=== PATIENT | male | born 1935 | race Two or more races ===

== ENCOUNTER 2017-07-08 00:02 | Inpatient (IN) | payer OTHER ==
[~2017-07-08] VITALS: Ht 167.6 cm; Wt 70.8 kg
[~2017-07-08 00:02] MED LIST: AVALIDE 300-12.1 TAB; AVALIDE 300-12.1 TAB PO; CARDURA1 MG; CATAPRES0.3 M1; CATAPRES0.3 M1 PO; DOXAZOSIN 4 MG PO; GLIMEPIRIDE2 MG; GLIMEPIRIDE2 MG PO; LOTREL 10/40 MG1 CAP; LOTREL 10/40 MG1 CAP PO; METFORMIN HCL500 MG; METFORMIN HCL500 MG PO; NORVASC2.5 M1; NORVASC2.5 M1 PO
[2017-07-11] MEDS ORDERED: CARDURA1 MG PO (07:46)
[2017-07-11] MEDS ORDERED: AVALIDE 300-121 EACH PO (07:46)
[2017-07-11] MEDS ORDERED: CATAPRES0.3 M1 PO (07:46)
== END 2017-07-11 10:15 | disposition home or self-care (01) | DRG 378 ==
LOC: ER 00:02 → MEDI 09:20 → SEC-K 09:20 → MEDI 11:54
PROC: BW21Y0Z Computerized Tomography (CT Scan) of Abdomen and Pelvis using Other Contrast, Unenhanced and Enhanced (ICD-10-PCS; 2017-07-08)
PROC: 0DBN8ZX Excision of Sigmoid Colon, Via Natural or Artificial Opening Endoscopic, Diagnostic (ICD-10-PCS; principal; 2017-07-09)
PROC: 30233N1 Transfusion of Nonautologous Red Blood Cells into Peripheral Vein, Percutaneous Approach (ICD-10-PCS; 2017-07-09)
DX: K92.2 Gastrointestinal hemorrhage, unspecified (principal); D62 Acute posthemorrhagic anemia; E11.9 Type 2 diabetes mellitus without complications; I10 Essential (primary) hypertension; E87.6 Hypokalemia; K63.5 Polyp of colon

== ENCOUNTER 2017-07-22 07:40 | Outpatient (CLI) | payer OTHER ==
[~2017-07-22 07:40] MED LIST changes: +AVALIDE 300-121 EACH PO; +CARDURA1 MG PO
== END 2017-07-22 07:50 | disposition home or self-care (01) ==
LOC: LAB 07:40
DX: E11.9 Type 2 diabetes mellitus without complications (principal); D64.89 Other specified anemias; I10 Essential (primary) hypertension

== ENCOUNTER → 2017-08-12 07:11 | Outpatient (CLI) | payer OTHER | END | disposition home or self-care (01) | LOC: LAB 07:11 | DX: E03.8 Other specified hypothyroidism (principal); E11.51 Type 2 diabetes mellitus with diabetic peripheral angiopathy without gangrene; E11.65 Type 2 diabetes mellitus with hyperglycemia; E11.9 Type 2 diabetes mellitus without complications; E55.9 Vitamin D deficiency, unspecified; E66.8 Other obesity; I10 Essential (primary) hypertension; K21.9 Gastro-esophageal reflux disease without esophagitis; M54.5 Low back pain; M54.14 Radiculopathy, thoracic region; F41.8 Other specified anxiety disorders; G62.89 Other specified polyneuropathies; M15.8 Other polyosteoarthritis; M89.8X8 Other specified disorders of bone, other site ==

== ENCOUNTER 2017-08-28 06:58 | Outpatient (CLI) | payer OTHER ==
[2017-08-30] MEDS ORDERED: CATAPRES0.3 M1 PO (13:26)
[2017-08-30] MEDS ORDERED: COREG CR20 MG PO (13:27)
[2017-08-30] MEDS ORDERED: AMARYL PO (13:28)
== END 2017-08-28 07:09 | disposition home or self-care (01) ==
LOC: LAB 06:58
DX: K64.2 Third degree hemorrhoids (principal); K92.2 Gastrointestinal hemorrhage, unspecified; E03.9 Hypothyroidism, unspecified; E11.51 Type 2 diabetes mellitus with diabetic peripheral angiopathy without gangrene; E11.65 Type 2 diabetes mellitus with hyperglycemia; E55.9 Vitamin D deficiency, unspecified; E66.8 Other obesity; F41.9 Anxiety disorder, unspecified; I10 Essential (primary) hypertension; G62.9 Polyneuropathy, unspecified; K21.9 Gastro-esophageal reflux disease without esophagitis; M15.9 Polyosteoarthritis, unspecified; M54.5 Low back pain; M54.14 Radiculopathy, thoracic region; M89.9 Disorder of bone, unspecified

== ENCOUNTER 2017-09-03 05:42 | Day surgery (SDC) | payer OTHER ==
[~2017-09-03 05:42] MED LIST changes: +AMARYL PO; +COREG CR20 MG PO
== END 2017-09-03 14:35 | disposition home or self-care (01) ==
LOC: CIR.AMB 05:42
DX: K64.8 Other hemorrhoids (principal)

== ENCOUNTER 2017-11-20 07:21 | Outpatient (CLI) | payer OTHER | END 2017-11-20 07:36 | disposition home or self-care (01) | LOC: LAB 07:21 | DX: E03.8 Other specified hypothyroidism (principal); E11.51 Type 2 diabetes mellitus with diabetic peripheral angiopathy without gangrene; E11.65 Type 2 diabetes mellitus with hyperglycemia; E11.9 Type 2 diabetes mellitus without complications; E55.9 Vitamin D deficiency, unspecified; E66.8 Other obesity; F41.8 Other specified anxiety disorders; I10 Essential (primary) hypertension; G62.89 Other specified polyneuropathies; K21.9 Gastro-esophageal reflux disease without esophagitis; M15.8 Other polyosteoarthritis; M54.5 Low back pain; M54.14 Radiculopathy, thoracic region; K64.2 Third degree hemorrhoids; K92.2 Gastrointestinal hemorrhage, unspecified; Z01.810 Encounter for preprocedural cardiovascular examination; M89.8X8 Other specified disorders of bone, other site ==

== ENCOUNTER 2017-12-18 07:07 | Outpatient (CLI) | payer OTHER | END 2017-12-18 07:11 | disposition home or self-care (01) | LOC: LAB 07:07 | DX: E03.8 Other specified hypothyroidism (principal); E11.51 Type 2 diabetes mellitus with diabetic peripheral angiopathy without gangrene; E11.65 Type 2 diabetes mellitus with hyperglycemia; E11.9 Type 2 diabetes mellitus without complications; E55.9 Vitamin D deficiency, unspecified; E66.8 Other obesity; F41.8 Other specified anxiety disorders; I10 Essential (primary) hypertension; G62.89 Other specified polyneuropathies; K21.9 Gastro-esophageal reflux disease without esophagitis; M15.8 Other polyosteoarthritis; M54.5 Low back pain; M54.14 Radiculopathy, thoracic region; M89.9 Disorder of bone, unspecified; K64.2 Third degree hemorrhoids; K92.2 Gastrointestinal hemorrhage, unspecified; Z01.812 Encounter for preprocedural laboratory examination ==

== ENCOUNTER 2017-12-27 12:50 | Outpatient (CLI) | payer OTHER | END 2017-12-27 12:56 | disposition home or self-care (01) | LOC: LAB 12:50 | DX: Z12.11 Encounter for screening for malignant neoplasm of colon (principal); E03.8 Other specified hypothyroidism; E11.51 Type 2 diabetes mellitus with diabetic peripheral angiopathy without gangrene; E11.65 Type 2 diabetes mellitus with hyperglycemia; E11.9 Type 2 diabetes mellitus without complications; E55.9 Vitamin D deficiency, unspecified; E66.8 Other obesity; F41.8 Other specified anxiety disorders; I10 Essential (primary) hypertension; G62.89 Other specified polyneuropathies; K21.9 Gastro-esophageal reflux disease without esophagitis; M54.5 Low back pain; M15.8 Other polyosteoarthritis; K64.2 Third degree hemorrhoids; Z01.810 Encounter for preprocedural cardiovascular examination; K92.89 Other specified diseases of the digestive system ==

== ENCOUNTER 2018-01-17 12:44 | Outpatient (CLI) | payer OTHER | END 2018-01-17 13:00 | disposition home or self-care (01) | LOC: RAD 12:44 | DX: M16.11 Unilateral primary osteoarthritis, right hip (principal); E03.8 Other specified hypothyroidism; E11.51 Type 2 diabetes mellitus with diabetic peripheral angiopathy without gangrene; E11.65 Type 2 diabetes mellitus with hyperglycemia; E55.9 Vitamin D deficiency, unspecified; E66.8 Other obesity; F41.8 Other specified anxiety disorders; I10 Essential (primary) hypertension; G62.89 Other specified polyneuropathies; K21.9 Gastro-esophageal reflux disease without esophagitis; M15.8 Other polyosteoarthritis; M54.5 Low back pain ==

== ENCOUNTER → 2018-03-31 07:12 | Outpatient (CLI) | payer OTHER | END | disposition home or self-care (01) | LOC: LAB 07:12 | DX: E03.8 Other specified hypothyroidism (principal); E11.51 Type 2 diabetes mellitus with diabetic peripheral angiopathy without gangrene; E11.65 Type 2 diabetes mellitus with hyperglycemia; E55.9 Vitamin D deficiency, unspecified; E66.8 Other obesity; F41.8 Other specified anxiety disorders; I10 Essential (primary) hypertension; G62.89 Other specified polyneuropathies; K21.9 Gastro-esophageal reflux disease without esophagitis; M15.8 Other polyosteoarthritis; M54.5 Low back pain; M54.14 Radiculopathy, thoracic region; K64.2 Third degree hemorrhoids; K92.2 Gastrointestinal hemorrhage, unspecified; Z01.810 Encounter for preprocedural cardiovascular examination; N18.2 Chronic kidney disease, stage 2 (mild); R80.8 Other proteinuria; M89.8X8 Other specified disorders of bone, other site ==

== ENCOUNTER 2018-04-29 07:47 | Outpatient (CLI) | payer OTHER | END 2018-04-29 08:59 | disposition home or self-care (01) | LOC: LAB 07:47 | DX: I11.9 Hypertensive heart disease without heart failure (principal) ==

== ENCOUNTER 2018-06-05 07:53 | Outpatient (CLI) | payer OTHER | END 2018-06-05 08:06 | disposition home or self-care (01) | LOC: LAB 07:53 | DX: N18.3 Chronic kidney disease, stage 3 (moderate) (principal); E11.21 Type 2 diabetes mellitus with diabetic nephropathy; D63.1 Anemia in chronic kidney disease; N30.00 Acute cystitis without hematuria; E03.8 Other specified hypothyroidism; E78.49 Other hyperlipidemia ==

== ENCOUNTER → 2018-06-06 09:01 | Outpatient (CLI) | payer OTHER | END | disposition home or self-care (01) | LOC: MAMO-SONO 07:45 → SONOGRAMA 09:01 | DX: R10.9 Unspecified abdominal pain (principal); N18.3 Chronic kidney disease, stage 3 (moderate); R31.9 Hematuria, unspecified ==

== ENCOUNTER 2018-06-07 09:22 | Outpatient (CLI) | payer OTHER | END 2018-06-07 09:35 | disposition home or self-care (01) | LOC: LAB 09:22 | DX: E04.8 Other specified nontoxic goiter (principal); E11.9 Type 2 diabetes mellitus without complications ==

== ENCOUNTER 2018-08-06 07:04 | Outpatient (CLI) | payer OTHER | END 2018-08-06 07:25 | disposition home or self-care (01) | LOC: LAB 07:04 | DX: M54.5 Low back pain (principal); E11.9 Type 2 diabetes mellitus without complications; N18.2 Chronic kidney disease, stage 2 (mild); Z01.810 Encounter for preprocedural cardiovascular examination; M54.14 Radiculopathy, thoracic region; E03.8 Other specified hypothyroidism; E11.51 Type 2 diabetes mellitus with diabetic peripheral angiopathy without gangrene; E11.65 Type 2 diabetes mellitus with hyperglycemia; G62.89 Other specified polyneuropathies; K21.9 Gastro-esophageal reflux disease without esophagitis; E11.21 Type 2 diabetes mellitus with diabetic nephropathy; E11.29 Type 2 diabetes mellitus with other diabetic kidney complication; E11.319 Type 2 diabetes mellitus with unspecified diabetic retinopathy without macular edema; R80.8 Other proteinuria; M15.8 Other polyosteoarthritis; M89.8X8 Other specified disorders of bone, other site ==

== ENCOUNTER 2018-08-14 13:26 | Outpatient (CLI) | payer OTHER | END 2018-08-14 13:44 | disposition home or self-care (01) | LOC: RAD 13:26 | DX: Z11.1 Encounter for screening for respiratory tuberculosis (principal) ==

== ENCOUNTER → 2018-09-22 07:57 | Outpatient (CLI) | payer OTHER | END | disposition home or self-care (01) | LOC: LAB 07:57 | DX: M54.5 Low back pain (principal); M89.8X8 Other specified disorders of bone, other site; E11.9 Type 2 diabetes mellitus without complications; E11.29 Type 2 diabetes mellitus with other diabetic kidney complication; E11.319 Type 2 diabetes mellitus with unspecified diabetic retinopathy without macular edema; N18.2 Chronic kidney disease, stage 2 (mild); R80.8 Other proteinuria; K92.2 Gastrointestinal hemorrhage, unspecified; M15.8 Other polyosteoarthritis; M54.14 Radiculopathy, thoracic region; E03.8 Other specified hypothyroidism; E11.51 Type 2 diabetes mellitus with diabetic peripheral angiopathy without gangrene; E11.65 Type 2 diabetes mellitus with hyperglycemia; G62.89 Other specified polyneuropathies; Z79.84 Long term (current) use of oral hypoglycemic drugs; Z68.25 Body mass index [BMI] 25.0-25.9, adult; I11.9 Hypertensive heart disease without heart failure; N18.3 Chronic kidney disease, stage 3 (moderate); E11.21 Type 2 diabetes mellitus with diabetic nephropathy; D63.1 Anemia in chronic kidney disease; N30.00 Acute cystitis without hematuria; E78.49 Other hyperlipidemia ==

== ENCOUNTER 2019-02-12 07:11 | Outpatient (CLI) | payer OTHER | END 2019-02-12 07:30 | disposition home or self-care (01) | LOC: LAB 07:11 | DX: N18.3 Chronic kidney disease, stage 3 (moderate) (principal); E11.21 Type 2 diabetes mellitus with diabetic nephropathy; D63.1 Anemia in chronic kidney disease; N30.00 Acute cystitis without hematuria; E78.49 Other hyperlipidemia; E03.8 Other specified hypothyroidism; E11.9 Type 2 diabetes mellitus without complications; E11.29 Type 2 diabetes mellitus with other diabetic kidney complication; E11.319 Type 2 diabetes mellitus with unspecified diabetic retinopathy without macular edema; N18.2 Chronic kidney disease, stage 2 (mild); R80.8 Other proteinuria; K92.2 Gastrointestinal hemorrhage, unspecified; M15.8 Other polyosteoarthritis; M54.14 Radiculopathy, thoracic region; M54.5 Low back pain; M89.8X8 Other specified disorders of bone, other site; E11.51 Type 2 diabetes mellitus with diabetic peripheral angiopathy without gangrene; E11.65 Type 2 diabetes mellitus with hyperglycemia; G62.89 Other specified polyneuropathies; I11.9 Hypertensive heart disease without heart failure; Z79.84 Long term (current) use of oral hypoglycemic drugs; E11.42 Type 2 diabetes mellitus with diabetic polyneuropathy; Z68.25 Body mass index [BMI] 25.0-25.9, adult ==

== ENCOUNTER 2019-02-16 07:41 | Outpatient (CLI) | payer OTHER | END 2019-02-16 07:48 | disposition home or self-care (01) | LOC: LAB 07:41 | DX: N18.3 Chronic kidney disease, stage 3 (moderate) (principal); E11.21 Type 2 diabetes mellitus with diabetic nephropathy; D63.1 Anemia in chronic kidney disease; N30.00 Acute cystitis without hematuria; E78.49 Other hyperlipidemia; E03.8 Other specified hypothyroidism ==

== ENCOUNTER 2019-03-18 07:17 | Outpatient (CLI) | payer OTHER | END 2019-03-18 17:00 | disposition home or self-care (01) | LOC: TOM 07:17 | DX: E27.8 Other specified disorders of adrenal gland (principal); N18.2 Chronic kidney disease, stage 2 (mild) ==

== ENCOUNTER 2019-05-25 07:06 | Outpatient (CLI) | payer OTHER | END 2019-05-25 07:12 | disposition home or self-care (01) | LOC: LAB 07:06 | DX: E11.29 Type 2 diabetes mellitus with other diabetic kidney complication (principal); E11.319 Type 2 diabetes mellitus with unspecified diabetic retinopathy without macular edema; N18.2 Chronic kidney disease, stage 2 (mild); K92.2 Gastrointestinal hemorrhage, unspecified; M15.8 Other polyosteoarthritis; M54.14 Radiculopathy, thoracic region; M54.5 Low back pain; M89.8X8 Other specified disorders of bone, other site; E03.8 Other specified hypothyroidism; E11.51 Type 2 diabetes mellitus with diabetic peripheral angiopathy without gangrene; E11.65 Type 2 diabetes mellitus with hyperglycemia; G62.89 Other specified polyneuropathies; I11.9 Hypertensive heart disease without heart failure; Z79.84 Long term (current) use of oral hypoglycemic drugs; E11.42 Type 2 diabetes mellitus with diabetic polyneuropathy; M79.7 Fibromyalgia; N18.1 Chronic kidney disease, stage 1; I13.10 Hypertensive heart and chronic kidney disease without heart failure, with stage 1 through stage 4 chronic kidney disease, or unspecified chronic kidney disease; Z68.25 Body mass index [BMI] 25.0-25.9, adult; N18.3 Chronic kidney disease, stage 3 (moderate); E11.21 Type 2 diabetes mellitus with diabetic nephropathy; D63.1 Anemia in chronic kidney disease; N30.00 Acute cystitis without hematuria; E78.49 Other hyperlipidemia ==

== ENCOUNTER 2019-08-11 07:18 | Outpatient (CLI) | payer OTHER | END 2019-08-11 15:00 | disposition home or self-care (01) | LOC: CERTIFICAD 07:18 → LAB 07:18 → CERTIFICAD 15:00 | DX: Z11.1 Encounter for screening for respiratory tuberculosis (principal) ==

== ENCOUNTER 2019-08-21 10:26 | Outpatient (CLI) | payer OTHER | END 2019-08-21 15:00 | disposition home or self-care (01) | LOC: CERTIFICAD 10:26 → RAD 10:26 → CERTIFICAD 15:00 | DX: Z11.1 Encounter for screening for respiratory tuberculosis (principal) ==

== ENCOUNTER 2019-09-03 07:43 | Outpatient (CLI) | payer OTHER | END 2019-09-03 07:50 | disposition home or self-care (01) | LOC: LAB 07:43 | DX: E11.9 Type 2 diabetes mellitus without complications (principal); E11.29 Type 2 diabetes mellitus with other diabetic kidney complication; E11.319 Type 2 diabetes mellitus with unspecified diabetic retinopathy without macular edema; N18.2 Chronic kidney disease, stage 2 (mild); N11.8 Other chronic tubulo-interstitial nephritis; E11.21 Type 2 diabetes mellitus with diabetic nephropathy; D63.1 Anemia in chronic kidney disease; N30.00 Acute cystitis without hematuria; E78.49 Other hyperlipidemia; E03.8 Other specified hypothyroidism; K92.2 Gastrointestinal hemorrhage, unspecified; M15.8 Other polyosteoarthritis; M54.14 Radiculopathy, thoracic region; M54.5 Low back pain; M89.8X0 Other specified disorders of bone, multiple sites; E11.51 Type 2 diabetes mellitus with diabetic peripheral angiopathy without gangrene; E11.65 Type 2 diabetes mellitus with hyperglycemia; G62.89 Other specified polyneuropathies; I11.9 Hypertensive heart disease without heart failure; Z79.84 Long term (current) use of oral hypoglycemic drugs; E11.42 Type 2 diabetes mellitus with diabetic polyneuropathy; M79.7 Fibromyalgia; N18.1 Chronic kidney disease, stage 1; I13.10 Hypertensive heart and chronic kidney disease without heart failure, with stage 1 through stage 4 chronic kidney disease, or unspecified chronic kidney disease; Z68.25 Body mass index [BMI] 25.0-25.9, adult ==

== ENCOUNTER 2019-11-10 06:57 | Outpatient (CLI) | payer OTHER | END 2019-11-10 08:18 | disposition home or self-care (01) | LOC: LAB 06:57 | PROVIDERS: ATTEND Internal Medicine | DX: E11.29 Type 2 diabetes mellitus with other diabetic kidney complication (principal); E11.319 Type 2 diabetes mellitus with unspecified diabetic retinopathy without macular edema; N18.2 Chronic kidney disease, stage 2 (mild); R92.2 Inconclusive mammogram; M15.8 Other polyosteoarthritis; M54.14 Radiculopathy, thoracic region; M54.5 Low back pain; M89.8X8 Other specified disorders of bone, other site; E03.8 Other specified hypothyroidism; E11.51 Type 2 diabetes mellitus with diabetic peripheral angiopathy without gangrene; E11.65 Type 2 diabetes mellitus with hyperglycemia; G62.89 Other specified polyneuropathies; I11.9 Hypertensive heart disease without heart failure; Z79.84 Long term (current) use of oral hypoglycemic drugs; E11.42 Type 2 diabetes mellitus with diabetic polyneuropathy; M79.7 Fibromyalgia; N18.1 Chronic kidney disease, stage 1; I13.10 Hypertensive heart and chronic kidney disease without heart failure, with stage 1 through stage 4 chronic kidney disease, or unspecified chronic kidney disease; Z68.25 Body mass index [BMI] 25.0-25.9, adult ==

== ENCOUNTER 2019-11-12 06:51 | Outpatient (CLI) | payer OTHER | END 2019-11-12 15:00 | disposition home or self-care (01) | LOC: LAB 06:51 | PROVIDERS: ATTEND Internal Medicine | DX: E11.29 Type 2 diabetes mellitus with other diabetic kidney complication (principal); E11.319 Type 2 diabetes mellitus with unspecified diabetic retinopathy without macular edema; N18.2 Chronic kidney disease, stage 2 (mild); K92.2 Gastrointestinal hemorrhage, unspecified; M15.8 Other polyosteoarthritis; M54.14 Radiculopathy, thoracic region; M54.5 Low back pain; M89.8X8 Other specified disorders of bone, other site; E03.8 Other specified hypothyroidism; E11.51 Type 2 diabetes mellitus with diabetic peripheral angiopathy without gangrene; E11.65 Type 2 diabetes mellitus with hyperglycemia; G62.89 Other specified polyneuropathies; I11.9 Hypertensive heart disease without heart failure; Z79.84 Long term (current) use of oral hypoglycemic drugs; E11.42 Type 2 diabetes mellitus with diabetic polyneuropathy; M79.7 Fibromyalgia; Z12.11 Encounter for screening for malignant neoplasm of colon; N18.1 Chronic kidney disease, stage 1; I13.10 Hypertensive heart and chronic kidney disease without heart failure, with stage 1 through stage 4 chronic kidney disease, or unspecified chronic kidney disease; Z68.25 Body mass index [BMI] 25.0-25.9, adult ==

== ENCOUNTER 2019-11-16 06:51 | Outpatient (CLI) | payer OTHER | END 2019-11-16 07:14 | disposition home or self-care (01) | LOC: LAB 06:51 | PROVIDERS: ATTEND Specialist/Technologist, Other Nephrology | DX: E11.21 Type 2 diabetes mellitus with diabetic nephropathy (principal); D63.1 Anemia in chronic kidney disease; N30.00 Acute cystitis without hematuria; E03.8 Other specified hypothyroidism ==

== ENCOUNTER 2020-02-19 06:53 | Outpatient (CLI) | payer OTHER | END 2020-02-19 06:58 | disposition home or self-care (01) | LOC: LAB 06:53 | PROVIDERS: ATTEND Internal Medicine | DX: E11.29 Type 2 diabetes mellitus with other diabetic kidney complication (principal); E11.319 Type 2 diabetes mellitus with unspecified diabetic retinopathy without macular edema; N18.2 Chronic kidney disease, stage 2 (mild); K92.2 Gastrointestinal hemorrhage, unspecified; M15.8 Other polyosteoarthritis; M54.14 Radiculopathy, thoracic region; M54.5 Low back pain; M89.8X8 Other specified disorders of bone, other site; E03.8 Other specified hypothyroidism; E11.51 Type 2 diabetes mellitus with diabetic peripheral angiopathy without gangrene; E11.65 Type 2 diabetes mellitus with hyperglycemia; G62.89 Other specified polyneuropathies; I11.9 Hypertensive heart disease without heart failure; Z79.84 Long term (current) use of oral hypoglycemic drugs; E11.42 Type 2 diabetes mellitus with diabetic polyneuropathy; M79.7 Fibromyalgia; N18.1 Chronic kidney disease, stage 1; I13.10 Hypertensive heart and chronic kidney disease without heart failure, with stage 1 through stage 4 chronic kidney disease, or unspecified chronic kidney disease; Z68.25 Body mass index [BMI] 25.0-25.9, adult ==

== ENCOUNTER 2020-02-25 08:00 | Outpatient (CLI) | payer OTHER | END 2020-02-25 15:40 | disposition home or self-care (01) | LOC: PPH VACUNA 08:00 | DX: Z23 Encounter for immunization (principal) | CPT/HCPCS: 90688; G0008 ==

== ENCOUNTER 2020-03-01 08:07 | Outpatient (CLI) | payer OTHER | END 2020-03-01 08:26 | disposition home or self-care (01) | LOC: LAB 08:07 | PROVIDERS: ATTEND Colon & Rectal Surgery | DX: K57.30 Diverticulosis of large intestine without perforation or abscess without bleeding (principal) ==

== ENCOUNTER 2020-05-18 07:29 | Outpatient (CLI) | payer OTHER | END 2020-05-18 07:33 | disposition home or self-care (01) | LOC: LAB 07:29 | PROVIDERS: ATTEND Internal Medicine | DX: E11.29 Type 2 diabetes mellitus with other diabetic kidney complication (principal); E11.319 Type 2 diabetes mellitus with unspecified diabetic retinopathy without macular edema; N18.2 Chronic kidney disease, stage 2 (mild); K92.2 Gastrointestinal hemorrhage, unspecified; M15.8 Other polyosteoarthritis; M54.14 Radiculopathy, thoracic region; M54.5 Low back pain; M89.8X8 Other specified disorders of bone, other site; E03.8 Other specified hypothyroidism; E11.51 Type 2 diabetes mellitus with diabetic peripheral angiopathy without gangrene; E11.65 Type 2 diabetes mellitus with hyperglycemia; G62.89 Other specified polyneuropathies; I11.9 Hypertensive heart disease without heart failure; Z79.84 Long term (current) use of oral hypoglycemic drugs; E11.42 Type 2 diabetes mellitus with diabetic polyneuropathy; M79.7 Fibromyalgia; N18.1 Chronic kidney disease, stage 1; I13.10 Hypertensive heart and chronic kidney disease without heart failure, with stage 1 through stage 4 chronic kidney disease, or unspecified chronic kidney disease; Z68.25 Body mass index [BMI] 25.0-25.9, adult ==

== ENCOUNTER 2020-05-26 11:50 | Outpatient (CLI) | payer OTHER | END 2020-05-26 15:00 | disposition home or self-care (01) | LOC: PPH VACUNA 11:50 | DX: Z23 Encounter for immunization (principal) ==

== ENCOUNTER 2020-06-16 02:35 | Outpatient (CLI) | payer OTHER | END 2020-06-16 15:00 | disposition home or self-care (01) | LOC: PPH VACUNA 02:35 | PROVIDERS: ATTEND Emergency Medicine Pediatric Emergency Medicine | DX: Z23 Encounter for immunization (principal) ==

== ENCOUNTER 2020-08-15 10:29 | Outpatient (CLI) | payer OTHER | END 2020-08-15 10:33 | disposition home or self-care (01) | LOC: RAD 10:29 | DX: I11.9 Hypertensive heart disease without heart failure (principal) ==

== ENCOUNTER 2020-08-19 08:00 | Outpatient (CLI) | payer OTHER | END 2020-08-19 08:06 | disposition home or self-care (01) | LOC: LAB 08:00 | PROVIDERS: ATTEND Internal Medicine | DX: E11.9 Type 2 diabetes mellitus without complications (principal); E11.29 Type 2 diabetes mellitus with other diabetic kidney complication; E11.319 Type 2 diabetes mellitus with unspecified diabetic retinopathy without macular edema; N18.2 Chronic kidney disease, stage 2 (mild); K92.2 Gastrointestinal hemorrhage, unspecified; M15.8 Other polyosteoarthritis; M54.14 Radiculopathy, thoracic region; M54.5 Low back pain; M89.8X8 Other specified disorders of bone, other site; E03.8 Other specified hypothyroidism; E11.51 Type 2 diabetes mellitus with diabetic peripheral angiopathy without gangrene; E11.65 Type 2 diabetes mellitus with hyperglycemia; G62.89 Other specified polyneuropathies; I11.9 Hypertensive heart disease without heart failure; Z79.84 Long term (current) use of oral hypoglycemic drugs; E11.42 Type 2 diabetes mellitus with diabetic polyneuropathy; M79.7 Fibromyalgia; N18.1 Chronic kidney disease, stage 1; I13.10 Hypertensive heart and chronic kidney disease without heart failure, with stage 1 through stage 4 chronic kidney disease, or unspecified chronic kidney disease; Z68.25 Body mass index [BMI] 25.0-25.9, adult; Z12.11 Encounter for screening for malignant neoplasm of colon ==

== ENCOUNTER 2020-08-22 07:33 | Outpatient (CLI) | payer OTHER | END 2020-08-22 07:43 | disposition home or self-care (01) | LOC: LAB 07:33 → PPH VACUNA 07:33 → LAB 07:43 | PROVIDERS: ATTEND Internal Medicine | DX: Z12.11 Encounter for screening for malignant neoplasm of colon (principal); E11.29 Type 2 diabetes mellitus with other diabetic kidney complication; E11.319 Type 2 diabetes mellitus with unspecified diabetic retinopathy without macular edema; N18.2 Chronic kidney disease, stage 2 (mild); R80.8 Other proteinuria; K92.2 Gastrointestinal hemorrhage, unspecified; M15.8 Other polyosteoarthritis; M54.14 Radiculopathy, thoracic region; M54.5 Low back pain; E03.8 Other specified hypothyroidism; E11.51 Type 2 diabetes mellitus with diabetic peripheral angiopathy without gangrene; E11.65 Type 2 diabetes mellitus with hyperglycemia; G62.89 Other specified polyneuropathies; I11.9 Hypertensive heart disease without heart failure; Z79.84 Long term (current) use of oral hypoglycemic drugs; E11.42 Type 2 diabetes mellitus with diabetic polyneuropathy; M79.7 Fibromyalgia; N18.1 Chronic kidney disease, stage 1; I13.10 Hypertensive heart and chronic kidney disease without heart failure, with stage 1 through stage 4 chronic kidney disease, or unspecified chronic kidney disease; Z68.25 Body mass index [BMI] 25.0-25.9, adult; M89.8X8 Other specified disorders of bone, other site ==

== ENCOUNTER 2020-11-22 07:40 | Outpatient (CLI) | payer OTHER | END 2020-11-22 07:46 | disposition home or self-care (01) | LOC: LAB 07:40 | PROVIDERS: ATTEND Internal Medicine | DX: E11.29 Type 2 diabetes mellitus with other diabetic kidney complication (principal); E11.319 Type 2 diabetes mellitus with unspecified diabetic retinopathy without macular edema; N18.2 Chronic kidney disease, stage 2 (mild); R80.9 Proteinuria, unspecified; K92.2 Gastrointestinal hemorrhage, unspecified; M15.9 Polyosteoarthritis, unspecified; M54.14 Radiculopathy, thoracic region; M54.5 Low back pain; M89.9 Disorder of bone, unspecified; E03.9 Hypothyroidism, unspecified; E11.51 Type 2 diabetes mellitus with diabetic peripheral angiopathy without gangrene; E11.65 Type 2 diabetes mellitus with hyperglycemia; G62.9 Polyneuropathy, unspecified; I11.9 Hypertensive heart disease without heart failure; Z79.84 Long term (current) use of oral hypoglycemic drugs; E11.42 Type 2 diabetes mellitus with diabetic polyneuropathy; M79.7 Fibromyalgia; N18.1 Chronic kidney disease, stage 1; I13.10 Hypertensive heart and chronic kidney disease without heart failure, with stage 1 through stage 4 chronic kidney disease, or unspecified chronic kidney disease; Z68.25 Body mass index [BMI] 25.0-25.9, adult ==

== ENCOUNTER 2020-12-26 14:03 | Emergency (ER) | payer OTHER ==
[~2020-12-26] VITALS: Ht 167.6 cm; Wt 76.2 kg
[2020-12-26] MEDS ORDERED: NORVASC5 MG PO (14:07)
[2020-12-26] MEDS ORDERED: CELEBREX100 MG PO (16:23)
[2020-12-26] MEDS ORDERED: SKELAXIN800 MG PO (16:23)
== END 2020-12-26 16:27 ==
LOC: ER 14:03
DX: M54.31 Sciatica, right side (principal)

== ENCOUNTER → 2021-01-05 | Outpatient (CLI) | payer OTHER ==
[~2021-01-05] MED LIST changes: +CELEBREX100 MG PO; +NORVASC5 MG PO; +SKELAXIN800 MG PO
== END | disposition home or self-care (01) ==
LOC: LAB 11:27
PROVIDERS: ATTEND Emergency Medicine Pediatric Emergency Medicine
DX: Z20.818 Contact with and (suspected) exposure to other bacterial communicable diseases (principal)

== ENCOUNTER → 2021-03-06 06:46 | Outpatient (CLI) | payer OTHER | END | disposition home or self-care (01) | LOC: LAB 06:46 | PROVIDERS: ATTEND Emergency Medicine Pediatric Emergency Medicine | DX: N41.0 Acute prostatitis (principal); E11.29 Type 2 diabetes mellitus with other diabetic kidney complication; E11.319 Type 2 diabetes mellitus with unspecified diabetic retinopathy without macular edema; N18.2 Chronic kidney disease, stage 2 (mild); K92.2 Gastrointestinal hemorrhage, unspecified; M15.8 Other polyosteoarthritis; M54.14 Radiculopathy, thoracic region; M54.5 Low back pain; M89.8X8 Other specified disorders of bone, other site; E03.8 Other specified hypothyroidism; E11.51 Type 2 diabetes mellitus with diabetic peripheral angiopathy without gangrene; E11.65 Type 2 diabetes mellitus with hyperglycemia; G62.89 Other specified polyneuropathies; I11.9 Hypertensive heart disease without heart failure; Z79.84 Long term (current) use of oral hypoglycemic drugs; E11.42 Type 2 diabetes mellitus with diabetic polyneuropathy; M79.7 Fibromyalgia; N18.1 Chronic kidney disease, stage 1; I13.10 Hypertensive heart and chronic kidney disease without heart failure, with stage 1 through stage 4 chronic kidney disease, or unspecified chronic kidney disease; Z68.25 Body mass index [BMI] 25.0-25.9, adult ==

== ENCOUNTER 2021-03-06 08:00 | Outpatient (CLI) | payer OTHER | END 2021-03-06 08:30 | disposition home or self-care (01) | LOC: PPH VACUNA 08:00 | PROVIDERS: ATTEND Emergency Medicine Pediatric Emergency Medicine | DX: Z23 Encounter for immunization (principal) ==

== ENCOUNTER 2021-03-08 08:00 | Outpatient (CLI) | payer OTHER | END 2021-03-08 08:30 | disposition home or self-care (01) | LOC: PPH VACUNA 08:00 | PROVIDERS: ATTEND Emergency Medicine Pediatric Emergency Medicine | DX: Z23 Encounter for immunization (principal) ==

== ENCOUNTER → 2021-03-24 09:13 | Outpatient (CLI) | payer OTHER | END | disposition home or self-care (01) | LOC: LAB 09:13 | PROVIDERS: ATTEND Specialist | DX: B01.9 Varicella without complication (principal) ==

== ENCOUNTER 2021-05-29 10:15 | Outpatient (CLI) | payer OTHER | END 2021-05-29 10:16 | disposition home or self-care (01) | LOC: LAB 10:15 | PROVIDERS: ATTEND Anesthesiology | DX: Z03.818 Encounter for observation for suspected exposure to other biological agents ruled out (principal); B96.0 Mycoplasma pneumoniae [M. pneumoniae] as the cause of diseases classified elsewhere ==

== ENCOUNTER 2021-06-07 07:17 | Outpatient (CLI) | payer OTHER | END 2021-06-07 07:22 | disposition home or self-care (01) | LOC: LAB 07:17 | PROVIDERS: ATTEND Anesthesiology Pain Medicine | DX: Z20.818 Contact with and (suspected) exposure to other bacterial communicable diseases (principal) ==

== ENCOUNTER 2021-06-19 06:57 | Outpatient (CLI) | payer OTHER | END 2021-06-19 07:02 | disposition home or self-care (01) | LOC: LAB 06:57 | PROVIDERS: ATTEND Internal Medicine | DX: E11.29 Type 2 diabetes mellitus with other diabetic kidney complication (principal); E11.9 Type 2 diabetes mellitus without complications; E11.319 Type 2 diabetes mellitus with unspecified diabetic retinopathy without macular edema; N18.2 Chronic kidney disease, stage 2 (mild); R80.8 Other proteinuria; K92.2 Gastrointestinal hemorrhage, unspecified; M15.9 Polyosteoarthritis, unspecified; M54.14 Radiculopathy, thoracic region; M54.59 Other low back pain; M89.8X0 Other specified disorders of bone, multiple sites; E03.8 Other specified hypothyroidism; E11.51 Type 2 diabetes mellitus with diabetic peripheral angiopathy without gangrene; E11.65 Type 2 diabetes mellitus with hyperglycemia; G62.89 Other specified polyneuropathies; I11.9 Hypertensive heart disease without heart failure; Z79.84 Long term (current) use of oral hypoglycemic drugs; E11.42 Type 2 diabetes mellitus with diabetic polyneuropathy; M79.7 Fibromyalgia; N18.1 Chronic kidney disease, stage 1; I13.10 Hypertensive heart and chronic kidney disease without heart failure, with stage 1 through stage 4 chronic kidney disease, or unspecified chronic kidney disease; Z68.25 Body mass index [BMI] 25.0-25.9, adult; N41.0 Acute prostatitis ==

== ENCOUNTER 2021-09-12 08:00 | Outpatient (CLI) | payer OTHER | END 2021-09-12 08:30 | disposition home or self-care (01) | LOC: PPH VACUNA 08:00 | PROVIDERS: ATTEND Emergency Medicine Pediatric Emergency Medicine | DX: Z23 Encounter for immunization (principal) ==

== ENCOUNTER 2021-09-18 07:34 | Outpatient (CLI) | payer OTHER | END 2021-09-18 07:48 | disposition home or self-care (01) | LOC: LAB 07:34 | PROVIDERS: ATTEND Internal Medicine | DX: E11.9 Type 2 diabetes mellitus without complications (principal); E11.29 Type 2 diabetes mellitus with other diabetic kidney complication; E11.319 Type 2 diabetes mellitus with unspecified diabetic retinopathy without macular edema; N18.2 Chronic kidney disease, stage 2 (mild); R80.9 Proteinuria, unspecified; K92.2 Gastrointestinal hemorrhage, unspecified; M15.9 Polyosteoarthritis, unspecified; M54.14 Radiculopathy, thoracic region; M54.50 Low back pain, unspecified; M89.9 Disorder of bone, unspecified; E03.9 Hypothyroidism, unspecified; E11.65 Type 2 diabetes mellitus with hyperglycemia; E11.51 Type 2 diabetes mellitus with diabetic peripheral angiopathy without gangrene; G62.9 Polyneuropathy, unspecified; I11.9 Hypertensive heart disease without heart failure; Z79.84 Long term (current) use of oral hypoglycemic drugs; E11.42 Type 2 diabetes mellitus with diabetic polyneuropathy ==

== ENCOUNTER 2021-12-18 07:09 | Outpatient (CLI) | payer OTHER | END 2021-12-18 07:23 | disposition home or self-care (01) | LOC: LAB 07:09 | PROVIDERS: ATTEND Internal Medicine | DX: E11.29 Type 2 diabetes mellitus with other diabetic kidney complication (principal); E11.319 Type 2 diabetes mellitus with unspecified diabetic retinopathy without macular edema; N18.2 Chronic kidney disease, stage 2 (mild); R80.9 Proteinuria, unspecified; K92.2 Gastrointestinal hemorrhage, unspecified; M15.9 Polyosteoarthritis, unspecified; M54.14 Radiculopathy, thoracic region; M54.50 Low back pain, unspecified; M89.9 Disorder of bone, unspecified; E03.9 Hypothyroidism, unspecified; E11.51 Type 2 diabetes mellitus with diabetic peripheral angiopathy without gangrene; E11.65 Type 2 diabetes mellitus with hyperglycemia; G62.9 Polyneuropathy, unspecified; I11.9 Hypertensive heart disease without heart failure; Z79.84 Long term (current) use of oral hypoglycemic drugs; E11.42 Type 2 diabetes mellitus with diabetic polyneuropathy; M79.7 Fibromyalgia; N18.1 Chronic kidney disease, stage 1; I13.10 Hypertensive heart and chronic kidney disease without heart failure, with stage 1 through stage 4 chronic kidney disease, or unspecified chronic kidney disease; Z20.828 Contact with and (suspected) exposure to other viral communicable diseases; Z68.25 Body mass index [BMI] 25.0-25.9, adult; N41.0 Acute prostatitis; Z12.11 Encounter for screening for malignant neoplasm of colon ==

== ENCOUNTER 2022-03-26 07:46 | Outpatient (CLI) | payer OTHER | END 2022-03-26 07:47 | disposition home or self-care (01) | LOC: LAB 07:46 | PROVIDERS: ATTEND Internal Medicine | DX: E11.9 Type 2 diabetes mellitus without complications (principal); E11.29 Type 2 diabetes mellitus with other diabetic kidney complication; E11.319 Type 2 diabetes mellitus with unspecified diabetic retinopathy without macular edema; N18.2 Chronic kidney disease, stage 2 (mild); R80.9 Proteinuria, unspecified; K92.2 Gastrointestinal hemorrhage, unspecified; M15.9 Polyosteoarthritis, unspecified; M54.14 Radiculopathy, thoracic region; M54.50 Low back pain, unspecified; M89.9 Disorder of bone, unspecified; E03.9 Hypothyroidism, unspecified; E11.51 Type 2 diabetes mellitus with diabetic peripheral angiopathy without gangrene; E11.65 Type 2 diabetes mellitus with hyperglycemia; G62.9 Polyneuropathy, unspecified; I11.9 Hypertensive heart disease without heart failure; Z79.84 Long term (current) use of oral hypoglycemic drugs; M79.7 Fibromyalgia; N18.1 Chronic kidney disease, stage 1; I83.10 Varicose veins of unspecified lower extremity with inflammation; Z20.828 Contact with and (suspected) exposure to other viral communicable diseases; N41.0 Acute prostatitis ==

== ENCOUNTER 2022-07-03 07:37 | Outpatient (CLI) | payer OTHER | END 2022-07-03 07:41 | disposition home or self-care (01) | LOC: LAB 07:37 | PROVIDERS: ATTEND Internal Medicine | DX: E11.29 Type 2 diabetes mellitus with other diabetic kidney complication (principal); E11.319 Type 2 diabetes mellitus with unspecified diabetic retinopathy without macular edema; N18.2 Chronic kidney disease, stage 2 (mild); R80.9 Proteinuria, unspecified; K92.2 Gastrointestinal hemorrhage, unspecified; M15.9 Polyosteoarthritis, unspecified; M54.14 Radiculopathy, thoracic region; M54.50 Low back pain, unspecified; M89.9 Disorder of bone, unspecified; E03.9 Hypothyroidism, unspecified; E11.51 Type 2 diabetes mellitus with diabetic peripheral angiopathy without gangrene; E11.65 Type 2 diabetes mellitus with hyperglycemia; I11.9 Hypertensive heart disease without heart failure; Z79.84 Long term (current) use of oral hypoglycemic drugs; E11.42 Type 2 diabetes mellitus with diabetic polyneuropathy; M79.7 Fibromyalgia; N18.1 Chronic kidney disease, stage 1; I13.10 Hypertensive heart and chronic kidney disease without heart failure, with stage 1 through stage 4 chronic kidney disease, or unspecified chronic kidney disease; Z20.828 Contact with and (suspected) exposure to other viral communicable diseases; Z68.25 Body mass index [BMI] 25.0-25.9, adult; N41.0 Acute prostatitis ==

== ENCOUNTER → 2022-10-05 07:07 | Outpatient (CLI) | payer OTHER | END | disposition home or self-care (01) | LOC: LAB 07:07 | PROVIDERS: ATTEND Internal Medicine | DX: E11.29 Type 2 diabetes mellitus with other diabetic kidney complication (principal); E11.319 Type 2 diabetes mellitus with unspecified diabetic retinopathy without macular edema; N18.2 Chronic kidney disease, stage 2 (mild); K92.2 Gastrointestinal hemorrhage, unspecified; M15.9 Polyosteoarthritis, unspecified; M54.14 Radiculopathy, thoracic region; M54.59 Other low back pain; E03.9 Hypothyroidism, unspecified; E11.51 Type 2 diabetes mellitus with diabetic peripheral angiopathy without gangrene; E11.65 Type 2 diabetes mellitus with hyperglycemia; G62.9 Polyneuropathy, unspecified; Z79.84 Long term (current) use of oral hypoglycemic drugs; E11.42 Type 2 diabetes mellitus with diabetic polyneuropathy; N18.1 Chronic kidney disease, stage 1; I13.10 Hypertensive heart and chronic kidney disease without heart failure, with stage 1 through stage 4 chronic kidney disease, or unspecified chronic kidney disease; Z68.25 Body mass index [BMI] 25.0-25.9, adult; N41.0 Acute prostatitis; R80.9 Proteinuria, unspecified ==

== ENCOUNTER 2022-12-20 08:33 | Emergency (ER) | payer OTHER ==
[~2022-12-20] VITALS: Ht 167.6 cm; Wt 72.6 kg
[2022-12-20] MEDS ORDERED: CARVEDILOL ER40 MG PO (08:50)
[2022-12-20] MEDS ORDERED: AMILORIDE HCL5 MG (08:50)
[2022-12-20] MEDS ORDERED: AMLODIPINE-ATO1 EAC9 PO (08:51)
[2022-12-20] MEDS ORDERED: GLIMEPIRIDE4 MG (08:52)
== END 2022-12-20 11:08 | disposition home or self-care (01) ==
LOC: ER 08:33
DX: S01.521A Laceration with foreign body of lip, initial encounter (principal); W18.39XA Other fall on same level, initial encounter; Y93.89 Activity, other specified; Y92.89 Other specified places as the place of occurrence of the external cause; E11.9 Type 2 diabetes mellitus without complications; Z79.84 Long term (current) use of oral hypoglycemic drugs; E78.00 Pure hypercholesterolemia, unspecified; I10 Essential (primary) hypertension; E03.9 Hypothyroidism, unspecified

== ENCOUNTER → 2023-01-15 08:09 | Outpatient (CLI) | payer OTHER ==
[~2023-01-15 08:09] MED LIST changes: +AMILORIDE HCL5 MG; +AMLODIPINE-ATO1 EAC9 PO; +CARVEDILOL ER40 MG PO; +GLIMEPIRIDE4 MG
== END | disposition home or self-care (01) ==
LOC: LAB 08:09
PROVIDERS: ATTEND Internal Medicine
DX: E11.29 Type 2 diabetes mellitus with other diabetic kidney complication (principal); E11.319 Type 2 diabetes mellitus with unspecified diabetic retinopathy without macular edema; N18.2 Chronic kidney disease, stage 2 (mild); R80.9 Proteinuria, unspecified; K92.2 Gastrointestinal hemorrhage, unspecified; M15.9 Polyosteoarthritis, unspecified; M54.14 Radiculopathy, thoracic region; M54.59 Other low back pain; E03.9 Hypothyroidism, unspecified; E11.51 Type 2 diabetes mellitus with diabetic peripheral angiopathy without gangrene; E11.65 Type 2 diabetes mellitus with hyperglycemia; G62.9 Polyneuropathy, unspecified; Z79.84 Long term (current) use of oral hypoglycemic drugs; E11.42 Type 2 diabetes mellitus with diabetic polyneuropathy; N18.1 Chronic kidney disease, stage 1; I13.10 Hypertensive heart and chronic kidney disease without heart failure, with stage 1 through stage 4 chronic kidney disease, or unspecified chronic kidney disease; Z68.25 Body mass index [BMI] 25.0-25.9, adult; N41.0 Acute prostatitis; Z12.11 Encounter for screening for malignant neoplasm of colon

== ENCOUNTER 2023-05-01 09:14 | Outpatient (CLI) | payer OTHER ==
[2023-05-01 10:11] LABS: HEMATOCRIT 40.2 % (39.0-48.0); HEMOGLOBIN 13.9 g/dL (13-16.00); MEAN CELL VOLUME 87.9 fL (80.0-100.00); MEAN CORPUSCULAR HEMOGLOBIN 30.5 pg (27.00-32.0); MEAN CORPUSCULAR HGB CONC 34.7 g/dl (32.0-36.0); PLATELET COUNT 244 K/uL (150-450); RED BLOOD COUNT 4.57 M/uL (4.00-6.00); RED CELL DISTRIBUTION WIDTH 13.4 % (11.5-14.5)
[2023-05-01 10:20] LABS: URINE APPEARANCE Clear; URINE BILIRRUBIN Negative (NEGATIVE); URINE BLOOD Negative; URINE COLOR Yellow; URINE GLUCOSE Negative (NEGATIVE); URINE LEUKOCYTE Negative; URINE NITRATE Negative; URINE UROBILINOGEN 0.2 E.U./dl
[2023-05-01 10:24] LABS: URINE EPITHELIAL CELLS 1.6 uL (0.0-38.8)
[2023-05-01 10:39] LABS: URINE BACTERIA 3.7 uL (0.0-1933); URINE PROTEIN 100 (NEGATIVE); URINE RBC 1.2 uL (0.0-20.8); URINE WBC 0.3 uL (0.0-23.2)
[2023-05-01 11:04] LABS: BILIRUBIN TOTAL 0.62 mg/dL (0.3-1.2); CALCIUM 10.6 mg/dL (8.5-10.1); CHOL HDL RATIO 2.3 (0-5.0); CREATININE SERUM 1.39 mg/dL (0.70-1.30); FREE TRIODOTIRONINE 2.33 pg/ml (2.18-3.98); GFR 48.45; GLOBULINA 3.9 G/DL (2.4-3.5); PHOSPHOROUS 2.9 mg/dL (2.5-4.9); POTASSIUM 3.2 mEq/L (3.5-5.1); T4 FREE 0.93 NG/ML (0.76-1.46); T4 TOTAL 9.17 UG/DL (4.5-12.1); TOTAL PROTEIN 7.9 gm/dL (6.4-8.2); TSH 2.15 uIU/mL (0.358-3.74)
== END 2023-05-01 09:15 | disposition home or self-care (01) ==
LOC: LAB 09:14
PROVIDERS: ATTEND Internal Medicine
DX: E11.29 Type 2 diabetes mellitus with other diabetic kidney complication (principal); E11.319 Type 2 diabetes mellitus with unspecified diabetic retinopathy without macular edema; N18.2 Chronic kidney disease, stage 2 (mild); R80.9 Proteinuria, unspecified; K92.2 Gastrointestinal hemorrhage, unspecified; M15.9 Polyosteoarthritis, unspecified; M54.14 Radiculopathy, thoracic region; E03.9 Hypothyroidism, unspecified; E11.51 Type 2 diabetes mellitus with diabetic peripheral angiopathy without gangrene; E11.65 Type 2 diabetes mellitus with hyperglycemia; G62.9 Polyneuropathy, unspecified; Z79.84 Long term (current) use of oral hypoglycemic drugs; E11.42 Type 2 diabetes mellitus with diabetic polyneuropathy; N18.1 Chronic kidney disease, stage 1; I13.10 Hypertensive heart and chronic kidney disease without heart failure, with stage 1 through stage 4 chronic kidney disease, or unspecified chronic kidney disease; Z68.25 Body mass index [BMI] 25.0-25.9, adult; N41.0 Acute prostatitis; Z12.11 Encounter for screening for malignant neoplasm of colon

== ENCOUNTER → 2023-07-22 07:03 | Outpatient (CLI) | payer OTHER ==
[2023-07-22 08:03] LABS: HEMOGLOBIN 13.4 g/dL (13-16.00); MEAN CELL VOLUME 87.5 fL (80.0-100.00); MEAN CORPUSCULAR HEMOGLOBIN 30.2 pg (27.00-32.0); MEAN CORPUSCULAR HGB CONC 34.5 g/dl (32.0-36.0); PLATELET COUNT 222 K/uL (150-450); RED BLOOD COUNT 4.45 M/uL (4.00-6.00)
[2023-07-22 08:05] LABS: URINE APPEARANCE Clear; URINE BILIRRUBIN Negative (NEGATIVE); URINE BLOOD Negative; URINE COLOR Yellow; URINE GLUCOSE Negative (NEGATIVE); URINE LEUKOCYTE Negative; URINE NITRATE Negative; URINE UROBILINOGEN 0.2 E.U./dl
[2023-07-22 08:07] LABS: URINE BACTERIA 23.9 uL (0.0-1933); URINE EPITHELIAL CELLS 5.4 uL (0.0-38.8); URINE RBC 3.7 uL (0.0-20.8); URINE WBC 5.4 uL (0.0-23.2)
[2023-07-22 08:32] LABS: URINE PROTEIN 300 (NEGATIVE)
[2023-07-22 08:50] LABS: ALBUMIN 3.8 gm/dL (3.4-5.0); BILIRUBIN TOTAL 0.72 mg/dL (0.3-1.2); CALCIUM 10.3 mg/dL (8.5-10.1); CREATININE SERUM 1.61 mg/dL (0.70-1.30); GFR 40.89; GLOBULINA 3.9 G/DL (2.4-3.5); PHOSPHOROUS 3.3 mg/dL (2.5-4.9); POTASSIUM 3.7 mEq/L (3.5-5.1); TOTAL PROTEIN 7.7 gm/dL (6.4-8.2); URIC ACID 5.8 mg/dL (3.5-8.5)
[2023-07-22 08:54] LABS: CHOL HDL RATIO 4.3 (0-5.0)
== END | disposition home or self-care (01) ==
LOC: LAB 07:03
PROVIDERS: ATTEND Internal Medicine
DX: E11.9 Type 2 diabetes mellitus without complications (principal); E11.29 Type 2 diabetes mellitus with other diabetic kidney complication; E11.319 Type 2 diabetes mellitus with unspecified diabetic retinopathy without macular edema; N18.2 Chronic kidney disease, stage 2 (mild); R80.9 Proteinuria, unspecified; K92.2 Gastrointestinal hemorrhage, unspecified; M15.9 Polyosteoarthritis, unspecified; M54.14 Radiculopathy, thoracic region; E03.9 Hypothyroidism, unspecified; E11.51 Type 2 diabetes mellitus with diabetic peripheral angiopathy without gangrene; E11.65 Type 2 diabetes mellitus with hyperglycemia; G62.9 Polyneuropathy, unspecified; Z79.84 Long term (current) use of oral hypoglycemic drugs; E11.42 Type 2 diabetes mellitus with diabetic polyneuropathy; N18.1 Chronic kidney disease, stage 1; I13.10 Hypertensive heart and chronic kidney disease without heart failure, with stage 1 through stage 4 chronic kidney disease, or unspecified chronic kidney disease; Z68.25 Body mass index [BMI] 25.0-25.9, adult; N41.0 Acute prostatitis; Z12.11 Encounter for screening for malignant neoplasm of colon; N18.30 Chronic kidney disease, stage 3 unspecified; E11.21 Type 2 diabetes mellitus with diabetic nephropathy; D63.1 Anemia in chronic kidney disease; D30.00 Benign neoplasm of unspecified kidney; E78.5 Hyperlipidemia, unspecified

== ENCOUNTER → 2023-07-24 10:23 | Outpatient (CLI) | payer OTHER ==
[2023-07-24 12:04] LABS: URINE PROT QUANT 24HR 130.7 MG/DL
[2023-07-24 12:09] LABS: URINE PROT QUANT 24 HR 3104.13 MG/24HR (42-225)
[2023-07-24 12:11] LABS: CREATININE SERUM 1.51 mg/dL (0.8-1.3)
== END | disposition home or self-care (01) ==
LOC: LAB 10:23
PROVIDERS: ATTEND Specialist/Technologist, Other Nephrology
DX: N18.30 Chronic kidney disease, stage 3 unspecified (principal); E11.21 Type 2 diabetes mellitus with diabetic nephropathy; D63.1 Anemia in chronic kidney disease; N30.00 Acute cystitis without hematuria; E78.5 Hyperlipidemia, unspecified; E03.9 Hypothyroidism, unspecified

== ENCOUNTER 2023-07-30 07:26 | Outpatient (CLI) | payer OTHER | END 2023-07-30 07:37 | disposition home or self-care (01) | LOC: TOM 07:26 | PROVIDERS: ATTEND Specialist/Technologist, Other Nephrology | DX: N18.30 Chronic kidney disease, stage 3 unspecified (principal); I12.9 Hypertensive chronic kidney disease with stage 1 through stage 4 chronic kidney disease, or unspecified chronic kidney disease; D35.02 Benign neoplasm of left adrenal gland ==

== ENCOUNTER → 2023-08-08 10:41 | Outpatient (CLI) | payer OTHER ==
[2023-08-08 14:03] LABS: ob POSITIVE (NEGATIVE)
== END | disposition home or self-care (01) ==
LOC: LAB 10:41
PROVIDERS: ATTEND Internal Medicine
DX: Z12.11 Encounter for screening for malignant neoplasm of colon (principal)

== ENCOUNTER 2023-09-13 07:18 | Outpatient (CLI) | payer OTHER ==
[2023-09-13 08:32] LABS: HEMATOCRIT 38.1 % (39.0-48.0); HEMOGLOBIN 13.3 g/dL (13-16.00); MEAN CELL VOLUME 87.8 fL (80.0-100.00); MEAN CORPUSCULAR HEMOGLOBIN 30.8 pg (27.00-32.0); PLATELET COUNT 224 K/uL (150-450); RED BLOOD COUNT 4.34 M/uL (4.00-6.00)
== END 2023-09-13 07:19 | disposition home or self-care (01) ==
LOC: LAB 07:18
PROVIDERS: ATTEND Colon & Rectal Surgery
DX: K64.2 Third degree hemorrhoids (principal); K92.2 Gastrointestinal hemorrhage, unspecified

== ENCOUNTER 2024-10-26 11:41 | Outpatient (CLI) | payer OTHER | END 2024-10-26 11:43 | disposition home or self-care (01) | LOC: MRI 11:41 | PROVIDERS: ATTEND Internal Medicine | DX: E11.9 Type 2 diabetes mellitus without complications (principal); E11.29 Type 2 diabetes mellitus with other diabetic kidney complication; E11.319 Type 2 diabetes mellitus with unspecified diabetic retinopathy without macular edema; M15.9 Polyosteoarthritis, unspecified; M54.14 Radiculopathy, thoracic region; E03.9 Hypothyroidism, unspecified; E11.51 Type 2 diabetes mellitus with diabetic peripheral angiopathy without gangrene; E11.65 Type 2 diabetes mellitus with hyperglycemia; Z79.84 Long term (current) use of oral hypoglycemic drugs; E11.42 Type 2 diabetes mellitus with diabetic polyneuropathy | CPT/HCPCS: 70551 ==

== ENCOUNTER → 2024-12-08 07:46 | Outpatient (CLI) | payer OTHER | END | disposition home or self-care (01) | LOC: NUCLEAR 07:46 | PROVIDERS: ATTEND Psychiatry & Neurology Clinical Neurophysiology | DX: G31.83 Neurocognitive disorder with Lewy bodies (principal) | CPT/HCPCS: 78803; A9557 ==

== ENCOUNTER 2025-03-22 09:39 | Outpatient (CLI) | payer OTHER | END 2025-03-22 09:46 | disposition home or self-care (01) | LOC: RAD 09:39 | PROVIDERS: ATTEND Internal Medicine | DX: E11.9 Type 2 diabetes mellitus without complications (principal); E11.29 Type 2 diabetes mellitus with other diabetic kidney complication; E11.319 Type 2 diabetes mellitus with unspecified diabetic retinopathy without macular edema; R80.9 Proteinuria, unspecified; M15.9 Polyosteoarthritis, unspecified; M54.14 Radiculopathy, thoracic region; E03.9 Hypothyroidism, unspecified; E11.51 Type 2 diabetes mellitus with diabetic peripheral angiopathy without gangrene; E11.65 Type 2 diabetes mellitus with hyperglycemia; G62.9 Polyneuropathy, unspecified; Z79.84 Long term (current) use of oral hypoglycemic drugs; E11.42 Type 2 diabetes mellitus with diabetic polyneuropathy ==